=== PATIENT | female | born 1980 | race Caucasian/White ===

== ENCOUNTER → 2016-12-13 | Outpatient (CLI) | payer BC, OTHER ==
[~2016-12-13] MED LIST: CHOL2000 PO; IRON PO; MULT-513 PO; OMEP40CA PO
--- NOTE | 2016-12-13 09:30 | DIAGNOSTIC IMAGING REPORT ---
FUSION CT SINUSES HISTORY: CHRONIC SINUSITIS/COUGH TECHNIQUE: Multiaxial CT images of size over performed reformatted in the coronal plane without the use of intravenous contrast. Fusion CT protocol was also performed. COMPARISON STUDY: None. FINDINGS: There are postoperative changes within the mandible. The screws appear intact. The mastoid air cells are clear. There is marked thinning of the bony covering of the carotid canals without definite evidence for dehiscence. Small focus of mild mucosal thickening within the posterior sphenoid sinus. The frontal sinuses, frontoethmoidal recesses, ethmoid air cells, and maxillary antra are clear. There are no fluid levels within the paranasal sinuses. The lamina papyracea and orbital floors are intact. The anterior clinoids and alma vasile are not pneumatized. The right cribriform plate is approximately 1 mm inferior to the left. Mild left nasal septal deviation. The ostiomeatal units are patent. The pterygopalatine fossa are well-maintained. The orbits and visualized brain parenchyma are unremarkable. IMPRESSION: Small focus of mild mucosal thickening within the sphenoid sinus. Otherwise, the paranasal sinuses and mastoid air cells are clear. Mild left nasal septal deviation. Electronically signed by: Rudi Valverde M.D. 12/13/2016 9:29 AM Dictated Date/Time: 12/13/2016 9:21 AM
== END | disposition home or self-care (01) ==
LOC: C.CTS 09:04
PROVIDERS: ATTEND Hospitalist
DX: J32.9 Chronic sinusitis, unspecified (principal); R51 Headache; R09.82 Postnasal drip; R05 Cough

== ENCOUNTER → 2017-02-25 | Outpatient (CLI) | payer BC, OTHER ==
[2017-02-25 15:46] LABS: BASO % 0.4 %; BASO ABS # 0.02 K/uL (0-0.2); COMPLETE YES; EOS % 0.5 %; HEMATOCRIT 39.4 % (37-47); IG% 0.2 %; LYMPH % 31.7 %; LYMPH ABS # 1.78 K/uL (1.2-3.4); MEAN CELL VOLUME 88.7 fL (80-100); MEAN CORPUSCULAR HEMOGLOBIN 28.8 pg (25-34); MEAN CORPUSCULAR HGB CONC 32.5 g/dl (32-36); MEAN PLATELET VOLUME 9.1 fL (7.4-10.4); MONO % 5.9 %; NEUT % 61.3 %; PLATELET COUNT 362 K/uL (130-400); RED BLOOD COUNT 4.44 M/uL (4.2-5.4); WHITE BLOOD COUNT 5.61 K/uL (4.8-10.8)
== END | disposition home or self-care (01) ==
LOC: C.LAB1850 14:56
PROVIDERS: ATTEND Physician Assistant
DX: N93.8 Other specified abnormal uterine and vaginal bleeding (principal)

== ENCOUNTER → 2017-02-25 | Outpatient (CLI) | payer BC, OTHER | END | disposition home or self-care (01) | LOC: C.PAPS 10:31 | PROVIDERS: ATTEND Physician Assistant | DX: Z01.419 Encounter for gynecological examination (general) (routine) without abnormal findings (principal) ==

== ENCOUNTER → 2017-10-10 | Outpatient (CLI) | payer BC, OTHER ==
--- NOTE | 2017-10-10 16:23 | DIAGNOSTIC IMAGING REPORT ---
RIGHT FOOT 3 VIEWS HISTORY: Right foot pain. COMPARISON: None. FINDINGS: Focal periosteal reaction at the distal shaft of the second metatarsal. The Lisfranc joint is intact. Soft tissues are unremarkable. Cartilage spaces are maintained for age. No dislocation. No radiopaque foreign bodies. IMPRESSION: Focal periosteal reaction at the distal shaft of the second metatarsal. This is consistent with stress-related changes/stress fracture. MRI can be used for further evaluation if clinically wanted. Electronically signed by: Rudi Valverde M.D. 10/10/2017 4:22 PM Dictated Date/Time: 10/10/2017 4:20 PM
== END | disposition home or self-care (01) ==
LOC: C.RAD 16:06
PROVIDERS: ATTEND Physician Assistant Medical
DX: M79.673 Pain in unspecified foot (principal)

== ENCOUNTER 2020-07-14 07:01 | Observation (INO) ==
--- NOTE | 2020-06-16 15:29 | PAT Medication Instructions ---
Medication Instructions Date of Service June 16, 2020 Home Medications Medication Instructions Recorded fluticasone propionate 50 1 spray INTRANASAL QAM #3 ea 11/29/20 mcg/actuation nasal spray,suspension multivitamin with minerals 1 tab PO QPM fluticasone propionate 50 mcg/actuation nasal spray,suspension 1 spray INTRANASAL QAM aluminum chloride [Drysol] 1 applic TOPICAL UD PRN ascorbic acid (vitamin C) [Vitamin C] 500 mg PO QAM lactobacillus combination no.4 [Probiotic] 3,000 mmu cells PO QPM montelukast 10 mg PO QAM pantoprazole 40 mg PO QAM STOP taking 24 hours before surgery aluminum chloride [Drysol] 1 applic TOPICAL UD PRN DO NOT take the morning of surgery ascorbic acid (vitamin C) [Vitamin C] 500 mg PO QAM montelukast 10 mg PO QAM Take morning of surgery With a small sip of water, OTHERWISE NOTHING TO EAT OR DRINK AFTER MIDNIGHT: fluticasone propionate 50 mcg/actuation nasal spray,suspension 1 spray INTRANASAL QAM pantoprazole 40 mg PO QAM Take evening before surgery multivitamin with minerals 1 tab PO QPM lactobacillus combination no.4 [Probiotic] 3,000 mmu cells PO QPM Other Notes If you have any questions please call us at [phone] or [phone] or [phone] or [phone]
--- NOTE | 2020-06-20 13:43 | Anesthesiology Consultation ---
Date of Service June 20, 2020 Assessment & Plan (1) Encounter for pre-operative examination: Chart Review Chart Review: Acceptable Risk for Surgery (pending preop Covid testing ) and Patient seen in Pre Admission Testing - Check test AM DOS *Per PAT appt 06/20/20, patient denies any recent travel. Works at [employer] (no recent Covid positive patients or employees)- did get Covid testing done in April 2020- results negative. No known Covid positive contacts or Covid related symptoms. Educated patient to follow up with surgeon's office regarding Covid testing. Educated on importance of self quarantining, social distancing and wearing mask in public both for the patient and household contacts. Teaching & Discussion Pre-Anesthesia Teaching/Discussion Notes: Instructed NPO after midnight before surgery,except medications with 15 cc of water. Medication instructions provided according to the [facility] guidelines. History Surgery Operation Date: 07/14/20 07:30 Proposed Procedures p Robotic Total Laparoscopic Hysterectomy - Amna Mancini MD, FACOG Height/Weight Height: 5 ft 6 in Weight: 62.4 kg Allergies Allergy/AdvReac Type Severity Reaction Status Date / Time Sulfa (Sulfonamide Allergy Mild RASH Verified 06/20/20 12:22 Antibiotics) Medications Home Medications Medication Instructions Recorded Confirmed Last Taken multivitamin with minerals 1 tab PO QPM 11/18/18 06/20/20 11/29/18 fluticasone propionate 50 1 spray INTRANASAL QAM #3 ea 11/29/19 06/20/20 Unknown mcg/actuation nasal spray,suspension aluminum chloride [Drysol] 1 applic TOPICAL UD PRN 06/14/20 06/20/20 Unknown ascorbic acid (vitamin C) [Vitamin 500 mg PO QAM 06/14/20 06/20/20 Unknown C] lactobacillus combination no.4 3,000 mmu cells PO QPM 06/14/20 06/20/20 Unknown [Probiotic] montelukast 10 mg PO QAM 06/14/20 06/20/20 Unknown pantoprazole 40 mg PO QAM 06/14/20 06/20/20 Unknown cyclosporine [Restasis] 1 drp OPHTHALMIC (EYE) Q12H 06/20/20 06/20/20 Unknown loteprednol etabonate [Lotemax] See Rx Instructions .ROUTE .COMPLEX 06/20/20 06/20/20 Unknown Past Medical History Medical History Cardiac murmur Mild per patient- usually not audible- 2012 ECHO showed no valve issues Chronic sinusitis GERD (gastroesophageal reflux disease) Well controlled and stable Hypercholesterolemia Diet controlled Exercise / Class Metabolic Activity II 4-5 Yardwork/Stairs/Walk up hill (one flight of stairs - no chest pain or SOB) Past Family History Family History Father Colonic polyp Other Breast cancer Diabetes Hypertension No family history of adverse response to anesthesia Past Surgical History Surgical History History of colonoscopy History of dilatation and curettage History of esophagogastroduodenoscopy (EGD) History of mandibular surgery 2009--lower jaw--normal ROM History of wisdom tooth extraction Past Anesthesia History No Hx of Anesthesia Complications and No Family Hx of Anesthesia Complications History of PONV No Hx of PONV and No Hx of Motion Sickness Social History Smoking Status: Never smoker Do You Dip or Chew Tobacco: No Hx Alcohol Use: Yes Alcohol type: beer and other alcohol intake frequency: holidays/special occasions only Hx Substance Use: No substance use type: does not use Review of Systems Patient denies chest pain, shortness of breath, dyspnea on exertion, cough, wheezing, palpitations. No hx of seizures, stroke, NE, apnea/snoring. No hx of blood clots or blood transfusions Physical Exam Vital Signs VITALS BP 110/61 P 62 TEMP 97.3 SP02 99% RESP 16 Constitutional no acute distress ENMT Mouth: no TMJ clicking Thyromental Distance: > or= 3.5 Finger Breadths (3.5) Mallampati Class: II Denies any loose or missing teeth Neck neck extension not limited Respiratory normal respiratory effort; no respiratory distress Auscultation: lungs clear to auscultation bilaterally; no wheezes Cardiovascular Rate/Rhythm: regular rate and regular rhythm Heart Sounds: + murmur (I/ systolic murmur (barely audible)) Vessels: no carotid bruit Musculoskeletal Spine: no pain with cervical ROM Neurologic moves all extremities Psychiatric Orientation: alert Testing Laboratory Results Blood Type O Positive 06/20/20 14:31 Antibody Screen NEGATIVE 06/20/20 14:31 05/16/20= WBC: 7.53 H/H: 14.6/43.2 PLATELETS: 355 Echocardiogram Date: 09/01/13 EF: 60-65% LV Function: normal Valvular Disease: + no significant valvular disease
[~2020-07-14 07:01] MED LIST changes: +ACETAMINOPHEN 1000 MG/100 ML IV IV ONE; +CEFAZOLIN 2000MG 2,000 MG/15 ML SYR IV SCH; -CHOL2000 PO; -IRON PO; +LACTATED RINGER'S 1,000 ML IV SCH; +LR 15ML/HR IV SCH; -MULT-513 PO; -OMEP40CA PO; +PHENAZOPYRIDINE HCL 200 MG TAB PO SCH
[2020-07-14] MEDS ORDERED: ONDANSETRON INJ 2 MG/ML 2 ML VIAL ONE (07:57)
[2020-07-14] MEDS ORDERED: MIDAZOLAM HCL 1 MG/ML 2ML VIAL ONE (07:57)
[2020-07-14] MEDS ORDERED: PROPOFOL IV EMULSION 10 MG/ML 20 ML VIAL IV ONE (07:57)
[2020-07-14] MEDS ORDERED: ROCURONIUM BROMIDE 10 MG/ML 5 ML VIAL IV ONE (07:57)
[2020-07-14] MEDS ORDERED: LIDOCAINE HCL 2% 2 ML VIAL/AMP(20MG/ML) INFIL ONE (07:57)
[2020-07-14] MEDS ORDERED: fentaNYL citrate 100 MCG/2 ML VIAL ONE ×2 (07:57→09:54)
[2020-07-14] MEDS ORDERED: DEXAMETHASONE SOD INJ 4 MG/ML VIAL ONE (07:57)
[2020-07-14] MEDS ORDERED: BUPIVACAINE 0.5 % 5 MG/1 ML MPF 30ML VIAL ONE (08:45)
[2020-07-14] MEDS ORDERED: METHYLENE BLUE 0.5% 10 ML VIAL ONE (08:45)
[2020-07-14] MEDS ORDERED: PROMETHAZINE HCL 6.25 MG in SODIUM CHLORIDE 0.9% 50 ML IV PRN (08:59)
[2020-07-14] MEDS ORDERED: ATROPINE SULFATE 0.1 MG/ML 10ML SYR IV PRN (08:59)
[2020-07-14] MEDS ORDERED: ONDANSETRON INJ 2 MG/ML 2 ML VIAL IV PRN ×2 (08:59→10:59)
[2020-07-14] MEDS ORDERED: KETOROLAC 30 MG/ML VIAL IV PRN ×2 (08:59→10:59)
[2020-07-14] MEDS ORDERED: PHENAZOPYRIDINE HCL 200 MG TAB ONE (09:07)
--- NOTE | 2020-07-14 09:09 | History & Physical Bridge Note ---
Date of Service July 14, 2020 History & Physical Bridge Note I have examined the patient, reviewed the History & Physical and in the interval since the performance of the History & Physical I have noted the following changes of clinical significance: no changes noted
[2020-07-14] MEDS ORDERED: ePHEDrine sulfate 50 MG/ML SYR ONE (10:18)
[2020-07-14] MEDS ORDERED: GLYCOPYRROLATE 0.2 MG/ML VIAL ONE (10:48)
[2020-07-14] MEDS ORDERED: NEOSTIGMINE METHYLSULFATE 5 MG/5 ML SYR ONE (10:48)
[2020-07-14] MEDS ORDERED: KETOROLAC 30 MG/ML VIAL ONE (10:49)
[2020-07-14] MEDS ORDERED: OXYCODONE/ACETAMINOPHEN 5mg/325mg TAB PO PRN ×2 (10:59)
[2020-07-14] MEDS ORDERED: IBUPROFEN 600 MG TAB PO PRN (10:59)
[2020-07-14] MEDS ORDERED: ACETAMINOPHEN 325 MG TAB PO PRN (10:59)
[2020-07-14] MEDS ORDERED: ZOLPIDEM TARTRATE 5 MG TAB PO PRN (10:59)
[2020-07-14] MEDS ORDERED: SIMETHICONE 80 MG CHEW PO PRN (10:59)
--- NOTE | 2020-07-14 10:59 | Post Operative Brief Note ---
PG Immediate Post Op with CF Date of Surgery July 14, 2020 Pre & Post Diagnosis Operation Date: 07/14/20 08:45 Pre-Op Diagnosis: Menorrhagia, Abnormal Uterine Bleeding, Abnormal ultrasound findings. Post-Op Diagnosis: Menorrhagia, Abnormal Uterine Bleeding, bnormal Ultrasound findings. I identified the patient and participated in the time-out.: Yes Procedure Operation Date: 07/14/20 08:45 Actual Procedures p Robotic-assisted Total Laparoscopic Hysterectomy, bilateral salpingectomies, cystoscopy - Amna Mancini MD, FACOG Surgeon Amna Mancini MD, FACOG Junior Underwriter Robert Estimated Blood Loss 5 Findings Consistent with Post-Op Diagnosis (uterus normal size, normal bilateral tubes and ovaries. nl liver edge and gallbladder. cystoscopy findings with normal bladder filling and normal ureteral jets. ) Fluids 1300 Specimens Specimen Description: Permanent specimen A: uterus, cervix, bilateral fallopian tubes Drains Harden Catheter (16fr harden catheter placed by Dr. Mancini at beginning of procedure; harden demonstrates clear yellow urine. Output measured and recorded by anesthesia.) Anesthesia Type General Complications none Disposition Accompanied Patient To Recovery: No Disposition: Recovery Room
[2020-07-14] MEDS ORDERED: LACTATED RINGER'S 1,000 ML IV SCH (11:00)
--- NOTE | 2020-07-14 11:40 | Operative Report ---
PG Post Operative Report Pre & Post Diagnosis Operation Date: 07/14/20 08:45 Pre-Op Diagnosis: Menorrhagia, Abnormal Uterine Bleeding, Abnormal ultrasound findings Post-Op Diagnosis: Menorrhagia, Abnormal Uterine Bleeding, Abnormal ultrasound findings I identified the patient and participated in the time-out.: Yes Procedure Operation Date: 07/14/20 08:45 Actual Procedures p Robotic-assisted Total Laparoscopic Hysterectomy, bilateral salpingectomies, cystoscopy - Amna Macnini MD, FACOG Surgeon Amna Mancini MD, FACOG Machine Lay Out Worker Robert Estimated Blood Loss 5 Findings Consistent with Post-Op Diagnosis (uterus normal size, normal bilateral tubes and ovaries. nl liver edge and gallbladder. cystoscopy findings with normal bladder filling and normal ureteral jets. ) Fluids 1300 Specimens uterus, cervix and bilateral fallopian tubes Drains harden Anesthesia Type General Complications none Disposition Accompanied Patient To Recovery: No Disposition: Recovery Room Indications 40yo with cc of aub, menorrhagia, abnormal ultrasound findings suggestive of polyp who desired definitive surgical management. She had evaluation in office and does have history of prior endometrial polyps. Please see H&P for more detail. She had completed her childbearing and spouse had vasectomy. Description of Procedure The patient was taken to the operating room and identified. After adequate general anesthesia was obtained she was placed in the dorsolithotomy position and prepped and draped in the usual sterile fashion. Attention was turned to the patient's vagina where a weighted speculum and anterior retractor were used to visualize the cervix. The cervix was grasped on its anterior lip with an allis clamp. A single interrupted suture of 0-vicryl was placed at the 3 o'clock position and tied down. The uterus sounded to 10cm. The V-Care uterine manipulator was placed through the cervical os into the uterine cavity and the balloon was inflated. The cup was tied down against the cervix with the suture material and the stabilizing cup was placed. A harden catheter had already been placed under sterile conditions. The retractors were removed and attention was then turned to the patient's abdomen. The scalpel was used to make a supraumbilical skin incision and the veress needle was placed intraperitoneally with an opening pressure of 2mm Hg. A CO2 pneumoperitoneum was created. The 12mm optical trocar attached to the laparoscope was then placed intraperitoneally and the patient was placed in steep Trendelenburg. The pelvis and abdomen were inspected with the findings as noted above. Two Da Thomas trocar sites were created left and right of the midline by first make skin incisions with the scalpel and then placing under direct visualization Da Thomas trocars. A blunt probe was used to move the bowel away from the planned operative sites. The laparoscope was removed and the Da Thomas Robot was brought to the patient's bedside. The appropriate arms were connected to the appropriate trocars. The camera was introduced. The monopolar justine and the fenestrated bipolar instruments were brought through instrument arms #1 and #2 respectively under direct visualization. The surgeon then went to the console. Using manipulation from below the right uterine ovarian/fallopian tube/round ligament complex was identified. The ureter was seen coursing well below the planned operative site. The fallopian tube on the right was dissected from the mesosalpinx to be included as specimen. The complex of the uterineovarian and round ligatment were then coagulated and transected gradually with the bipolar cautery followed by the monopolar justine. The anterior and posterior leaves of the broad ligament were opened and the bladder flap was begun anteriorly towards the anterior midline. The uterine artery pedicle was bluntly skeletonized. With the bladder well away from the planned operative sites, the uterine artery pedicle was cauterized. Attention was then turned to the left uterine ovarian/fallopian tube/round ligament complex which was identified and sequentially cauterized and cut in a similar manner. The broad ligament leaves were opened up on this side and a bladder flap was created from this side meeting in the midline anteriorly. The bladder was pushed away bluntly from the planned colpotomy site. The uterine artery pedicle was skeletonized on this side and the vessels were coagulated. The were then transected and sequentially the cardinal ligament attachments were also coagulated and cut. The pedicle was pushed well away from the planned colpotomy. Attention was returned to the right uterine artery pedicle which was then re-cauterized and cut sequentially and the cardinal ligament attachments were also coagulated and transected. The bladder had been dissected and pushed well away from the planned colpotomy site. The uterus was raised and the colpotomy was begun posteriorly and carried around circumferentially to transect the cervix from the upper vagina. The specimen was then brought out vaginally and a sponge was placed in the vagina to maintain the pneumoperitoneum. Operative sites were hemostatic. The monopolar justine were replaced with a large needle batch mixing truck driver and the 2-0 V-Lock 90 suture was brought through the vagina. The cuff was closed in a routine fashion with this suture material and back sutures were placed. The sponge was removed from the vagina and the pneumoperitoneum was maintained. The suture material was cut and the needle was removed from the abdomen through instrument arm #1. After the needle was removed the suction wool sacker was brought through the right trocar and the pelvis was irrigated and the operative sites were hemostatic. The pneumoperitoneum was let down and no bleeding sites were noted. The cystoscopy was then performed with the findings as noted above and a new harden catheter was placed. The camera and all laparoscopic instruments were removed and the robot was then undocked and moved away from the patient's bedside. The CO2 gas was allowed to escape from the pa tient's abdomen. The trocars were removed. The supraumbilical tissues were reapproximated with 0 vicryl and all skin incisions were closed with 4-0 vicryl in a subcuticular fashion. The incisions were injected with marcaine and dressed with band-aids. At this point the procedure was terminated. The patient was returned to the supine position and transported to the recovery room in stable condition. All sponge lap and needle counts were correct x 2. I attest to the content of the Intraoperative Record and any orders documented therein. Any exceptions are noted below. ACETYLENE CUTTER Major Procedure Codes Hysterectomy 91955 TLH <250g +S/O Miscellaneous 31469 Cystoscopy
[2020-07-14] MEDS: HYDROmorphone INJ 1 MG/ML SYRINGE IV PRN ×4 (11:42→11:57)
--- NOTE | 2020-07-14 13:53 | Gynecologic Progress Note ---
Date of Service July 14, 2020 Assessment & Plan (1) Post-operative state: still sleepy from anesthesia. vss. routine postop care. did tell her that surgery went well but not sure she is awake enough to be aware. Admission and Anticipated Discharge Date Admission Date: July 14, 2020 Subjective pt groggy postop resting Physical Exam Constitutional: WD/WN, vitals as above Results & Data ([facility]) Vital Signs (Past 12 Hours) Vital Signs Temp Pulse Pulse Resp BP BP Pulse Ox 07/14/20 12:20 98.1 F 66 14 106/66 97 07/14/20 12:15 61 17 105/52 L 97 07/14/20 12:05 98.1 F 57 L 16 102/52 L 97 07/14/20 11:55 58 L 14 101/53 L 97 07/14/20 11:45 56 L 14 103/54 L 98 07/14/20 11:35 56 L 13 105/53 L 99 07/14/20 11:25 55 L 14 105/56 L 99 07/14/20 11:15 56 L 16 106/53 L 100 07/14/20 11:06 96.8 F L 66 22 105/51 L 99 07/14/20 07:58 98.2 F 73 20 127/69 100 Pulse Ox 07/14/20 12:20 97 07/14/20 12:15 07/14/20 12:05 07/14/20 11:55 07/14/20 11:45 07/14/20 11:35 07/14/20 11:25 07/14/20 11:15 07/14/20 11:06 07/14/20 07:58 PG Care Time/CCT Total # of Minutes Spent Total Time Spent with Patient: Total time spent is greater than 50% in coordination of care (as documented) at patient's floor/unit and/or counseling patient: Coding Level of Care Code None Diagnoses Post-operative state Z98.890
--- NOTE | 2020-07-14 14:01 | Anesthesiology Progress Note ---
Date of Service July 14, 2020 Anesthesia Post Procedure Vital Signs Vital Signs: Temp Pulse Pulse Resp BP BP Pulse Ox 07/14/20 12:20 36.7 C 66 14 106/66 97 07/14/20 12:15 61 17 105/52 L 97 07/14/20 12:05 36.7 C 57 L 16 102/52 L 97 07/14/20 11:55 58 L 14 101/53 L 97 07/14/20 11:45 56 L 14 103/54 L 98 07/14/20 11:35 56 L 13 105/53 L 99 07/14/20 11:25 55 L 14 105/56 L 99 07/14/20 11:15 56 L 16 106/53 L 100 07/14/20 11:06 36.0 C L 66 22 105/51 L 99 07/14/20 07:58 36.8 C 73 20 127/69 100 Pulse Ox 07/14/20 12:20 97 07/14/20 12:15 07/14/20 12:05 07/14/20 11:55 07/14/20 11:45 07/14/20 11:35 07/14/20 11:25 07/14/20 11:15 07/14/20 11:06 07/14/20 07:58 Pain Intensity Abdomen: Pain Intensity: 5 Transfer of Care Handoff Completed per policy Notes Mental Status: alert / awake / arousable Patient Amnestic to Procedure: Yes Nausea / Vomiting: adequately controlled Pain: adequately controlled Airway Patency, RR, SpO2: stable & adequate BP & HR: stable & adequate Hydration State: stable & adequate Anesthetic Complications: no major complications apparent
[2020-07-14] MEDS ORDERED: PROMETHAZINE HCL 12.5 MG in SODIUM CHLORIDE 0.9% 50 ML IV PRN (16:32)
[2020-07-14] MEDS ORDERED: PROMETHAZINE HCL 25 MG in SODIUM CHLORIDE 0.9% 50 ML IV PRN (16:32)
--- NOTE | 2020-07-14 17:17 | Gynecologic Progress Note ---
Date of Service July 14, 2020 Assessment & Plan (1) Post-operative state: reviewed with patient findings at surgery. she will see how she feels as evening progresses and can always stay until am if she is more comfortable with such. awaiting void, planning regular diet at dinner. aware of pain meds sent to pharm and instructions. has 2wk post op arranged. denies questions at this time. Admission and Anticipated Discharge Date Admission Date: July 14, 2020 Subjective some nausea, denies pain issues. resting. harden out and drinking fluids, had crackers Physical Exam Constitutional: WD/WN, vitals as above Results & Data ([facility]) Vital Signs (Past 12 Hours) Vital Signs Temp Pulse Pulse Pulse Resp BP BP 07/14/20 15:10 98.2 F 88 16 109/65 07/14/20 14:10 97.7 F 84 16 104/58 L 07/14/20 13:10 97.9 F 81 16 105/62 07/14/20 12:40 97.9 F 68 14 109/70 07/14/20 12:20 98.1 F 66 14 106/66 07/14/20 12:15 61 17 105/52 L 07/14/20 12:05 98.1 F 57 L 16 102/52 L 07/14/20 11:55 58 L 14 101/53 L 07/14/20 11:45 56 L 14 103/54 L 07/14/20 11:35 56 L 13 105/53 L 07/14/20 11:25 55 L 14 105/56 L 07/14/20 11:15 56 L 16 106/53 L 07/14/20 11:06 96.8 F L 66 22 105/51 L 07/14/20 07:58 98.2 F 73 20 127/69 Pulse Ox Pulse Ox 07/14/20 15:10 100 07/14/20 14:10 98 07/14/20 13:10 97 07/14/20 12:40 96 07/14/20 12:20 97 97 07/14/20 12:15 97 07/14/20 12:05 97 07/14/20 11:55 97 07/14/20 11:45 98 07/14/20 11:35 99 07/14/20 11:25 99 07/14/20 11:15 100 07/14/20 11:06 99 07/14/20 07:58 100 PG Care Time/CCT Total # of Minutes Spent Total Time Spent with Patient: Total time spent is greater than 50% in coordination of care (as documented) at patient's floor/unit and/or counseling patient: Coding Level of Care Code None Diagnoses Post-operative state Z98.890
--- NOTE | 2020-07-14 22:58 | Discharge Summary ---
Date of Service Date of admission and date of discharge: July 14, 2020 Discharge Data Procedures Performed Operation Date: 07/14/20 08:45 Actual Procedures p Robotic-assisted Total Laparoscopic Hysterectomy, bilateral salpingectomy, - Amna Mancini MD, TARUN s Cystoscopy - Amna Mancini MD, [facility] Hospital Course (1) Abnormal uterine bleeding (AUB): (2) Abnormal ultrasound of uterus: (3) Menorrhagia: Patient was admitted and underwent the above stated procedures. Please see her H&P for more detail. The procedures were performed without incident. Her postop recovery and course were uncomplicated and on POD #0 she was stable for discharge to home. She was tolerating a regular diet, voiding and ambulating without difficulty and her pain was well controlled on oral pain medications. Her instructions were reviewed and followup reviewed which was planned for approximately 2 weeks. She was sent appropriate pain medicine scripts to her pharmacy. Coding Level of Care Code None Diagnoses Abnormal uterine bleeding (AUB) N93.9 Abnormal ultrasound of uterus R93.5 Menorrhagia N92.0
== END 2020-07-14 20:10 | disposition home or self-care (01) ==
LOC: 4S2 07:01 → ASU 07:01